=== PATIENT | male | born 1955 | race Caucasian/White ===

== ENCOUNTER 2021-07-23 16:38 | Inpatient (IN) | payer OTHER ==
[~2021-07-23] VITALS: Ht 195.6 cm; Wt 137.9 kg
--- NOTE | 2021-07-23 16:40 | NUR ---
Patient to ER bed 4 to gown for evaluation. Side rails up. Report given to SARABJIT TRINH.
--- NOTE | 2021-07-23 16:42 | NUR ---
ER at bedside examining patient.
--- NOTE | 2021-07-23 16:45 | NUR ---
PT CAME IN TODAY AFTER BEING REFERRED BY URGENT CARE, STATES HE STARTED TO HAVE CP LAST NIGHT AROUND 2200, WOKE UP THIS MORNING STILL HAVING SUBSTERNAL NONRADIATING CP WITH SOME SOB. PT IS AMBULATORY, AAOX4, VSS
[2021-07-23 16:49] VITALS: BP_SYST 167
--- NOTE | 2021-07-23 17:00 | NUR ---
PT ABLE TO PROVIDE URINE SAMPLE
--- NOTE | 2021-07-23 17:10 | NUR ---
# 20 gauge angiocath placed to LAC. Use of asceptic technique. Opsite placed over site. Blood return noted. Blood for lab drawn from site. Flushed with 10 cc of normal saline. No evidence of infiltration noted. Patient tolerated well.
[2021-07-23 17:19] LABS: BILIRUBIN,URINE NEGATIVE (NEGATIVE); BLOOD, URINE NEGATIVE (NEGATIVE); CLARITY/URINE CLEAR (CLEAR); COLOR,URINE YELLOW (YELLOW); GLUCOSE,URINE NEGATIVE (NEGATIVE); KETONES,URINE TRACE (NEGATIVE); LEUKOCYTE ESTERASE ,URINE NEGATIVE (NEGATIVE); NITRITE, URINE NEGATIVE (NEGATIVE); PROTEIN URINE TRACE (NEGATIVE); UROBILINOGEN,URINE 0.2 (0.2-1.0)
--- NOTE | 2021-07-23 17:23 | NUR ---
PORTABLE XRAY AT THE BEDSIDE
[2021-07-23 17:32] LABS: BASOPHILS # (AUTO) 0.1 K/uL (0.0-0.2); BASOPHILS % (AUTO) 1.3 % (0.0-2.0); EOSINOPHILS % (AUTO) 0.3 % (0.0-4.0); HEMATOCRIT 43.8 % (36-54); HEMOGLOBIN 14.5 g/dL (14.0-18.0); LYMPHOCYTES # (AUTO) 0.9 K/uL (1.0-5.5); LYMPHOCYTES % (AUTO) 9.1 % (20.5-51.5); MEAN CORPUSCULAR HEMOGLOBIN 30 pg (27-31); MEAN CORPUSCULAR HGB CONC 33 % (32-36); MEAN CORPUSCULAR VOLUME 91 fL (79.0-98.0); MONOCYTES % (AUTO) 10.3 % (1.7-9.3); PLATELET COUNT (AUTO) 215 K/uL (130-430); RED BLOOD CELL COUNT(AUTO) 4.79 MIL/uL (4.2-6.2); RED CELL DISTRIBUTION WIDTH 14.4 % (9.0-15.0); WHITE BLOOD COUNT (AUTO) 10.1 K/uL (4.8-10.8)
[2021-07-23 17:37] LABS: ANION GAP 9 (5-15); CALCIUM 8.8 mg/dL (8.4-11.0); CHLORIDE 102 mmol/L (98-107); CREATININE 1.26 mg/dL (0.55-1.30); GLUCOSE 130 mg/dL (70-99); SODIUM SERUM 138 mmol/L (136-145); UREA NITROGEN, BLOOD 16 mg/dL (8-21)
[2021-07-23 17:38] LABS: PROTHROMBIN TIME 10.3 SECS (9.5-12.5)
[2021-07-23 17:40] LABS: GFR AFRICAN AMERICAN 73 mL/min (>90)
[2021-07-23 17:45] LABS: ALANINE AMINOTRANSFERASE 32 U/L (12-78); ALBUMIN 3.8 g/dL (3.4-4.8); ASPARTATE AMINOTRANSFERASE 25 U/L (10-37); LIPASE 34 U/L (73-393); TOTAL BILIRUBIN 0.5 mg/dL (0.0-1.0)
[2021-07-23] MEDS ORDERED: ASPIRIN 325 MG TABLET PO ONE (17:45)
--- NOTE | 2021-07-23 17:46 | NUR ---
COVID SWAB DONE AND SENT TO LAB
[2021-07-23] MEDS ORDERED: NITROGLYCERIN 0.4 MG TAB.SUBL SL ONE (18:45)
[2021-07-23] MEDS ORDERED: OMEP-268 PO (18:56)
--- NOTE | 2021-07-23 18:57 | NUR ---
Medication reconciliation completed with information provided by PT. Any prior medication reconciliation on file was reviewed and corrected.
--- NOTE | 2021-07-23 19:11 | NUR ---
REPORT GIVEN TO GAYATHRI COPELAND
--- NOTE | 2021-07-23 19:18 | NUR ---
Pt states pain level is 1/10 after Nitro administration, states he feels better.
--- NOTE | 2021-07-23 19:23 | NUR ---
REPORT RECIEVED FROM GAYATHRI JEFFERY. PT IN BED NO ACUTE DISTRESS. PT DENIES ANY PAIN AT THIS TIME. AT THE BEDSIDE. ANURAG MONITOR NEEDED
[2021-07-23] MEDS ORDERED: DOXYCYCLINE HYCLATE 100 MG CAPSULE PO ONE (20:30)
[2021-07-23] MEDS ORDERED: cefTRIAXone 1 GM in D5W 50 ML IV ONE (20:30)
[2021-07-23] MEDS ORDERED: cefTRIAXone 1 GM VIAL ONE (20:36)
--- NOTE | 2021-07-23 20:56 | NUR ---
PT IN BED, PENDING ADMISSION.
--- NOTE | 2021-07-23 21:09 | NUR ---
Pravin mina in [facility] - 07/24/21 at 0021 by [email or web address] PT TRANSPORTED IN STABLE CONDITION TO [facility] UNIT WITH ALL BELONGINGS. BEDSIDE REPORT CLAUDY TO STALIN DURAN RN. ALL QUESTIONS ANSWERED
--- NOTE | 2021-07-23 21:09 | NUR ---
PT TRANSPORTED IN STABLE CONDITION TO TELE UNIT WITH ALL BELONGINGS. BEDSIDE REPORT GIEVN TO STALIN DURAN RN. ALL QUESTIONS ANSWERED
[2021-07-23] MEDS ORDERED: ALBUTEROL SULFATE 0.083% 2.5 MG/3 ML VIAL.NEB INH PRN (21:30)
[2021-07-23] MEDS ORDERED: HYDROcodone/ACETAMIN 5-325 MG TAB (NORCO/ VICODIN) PO PRN (21:30)
[2021-07-23] MEDS: AZITHROMYCIN 500 MG in NS 250 ML IV SCH (21:30)
--- NOTE | 2021-07-23 21:44 | NUR ---
Admit bed requested Patient will be admitted to care of . Admitted to TELE unit. Diagnosis CHEST PAIN,PNEUMONIA Inpatient (Yes or No) NO Observation (Yes or No) YES Orientation concerns or request close to nursing station (Yes or No) NO Covid Status NEGATIVE On vent or bipap NO Isolation requirements NO Needs a sitter NO From Home (Yes or if No enter name of facility) YES Requires Dialysis (Yes or No) NO Med Rec Completed (Yes of No) PENDING
--- NOTE | 2021-07-23 22:09 | NUR ---
PT TRANSPORTED TO TELE UNIT IN STABLE CONDITION WITH ALL BELONGINGS BY RN WITH TECH. BEDSIDE REPORT PROVIDED TO STALIN DURAN RN. ALL QUESTIONS ANSWERED
--- NOTE | 2021-07-23 22:23 | NUR ---
ADMISSION NOTE Received patient from ER via hallie, received report from Roz TRINH. Patient admitted with diagnosis of chest pain, pneumonia. Patient oriented to hospital routine, call light, toileting and safety-patient verbalized understanding.
[2021-07-23 22:34] VITALS: BP_SYST 147
--- NOTE | 2021-07-23 22:46 | NUR ---
CONSULTATION PAGED/CALLED Reason for Consultation: CHEST PAIN Person Who was Notified: LAURA Consulting Physician:WILIAN Cook [employer]: Ordering Physician: CITLALI
[2021-07-23] MEDS ORDERED: AZITHROMYCIN 500 MG/VIAL (ZITHROMAX) IV ONE (23:22)
[2021-07-24 04:04] VITALS: BP_SYST 147
[2021-07-24 06:37] LABS: BASOPHILS % (AUTO) 0.2 % (0.0-2.0); EOSINOPHILS % (AUTO) 0.5 % (0.0-4.0); HEMATOCRIT 39.3 % (36-54); LYMPHOCYTES # (AUTO) 1.7 K/uL (1.0-5.5); MEAN CORPUSCULAR HEMOGLOBIN 30 pg (27-31); MEAN CORPUSCULAR HGB CONC 33 % (32-36); MEAN CORPUSCULAR VOLUME 91 fL (79.0-98.0); MONOCYTES % (AUTO) 11.7 % (1.7-9.3); NEUTROPHILS # (AUTO) 5.7 K/uL (1.8-7.7); NEUTROPHILS % (AUTO) 67.6 % (40.0-70.0); PLATELET COUNT (AUTO) 187 K/uL (130-430); RED BLOOD CELL COUNT(AUTO) 4.33 MIL/uL (4.2-6.2); RED CELL DISTRIBUTION WIDTH 14.4 % (9.0-15.0); WHITE BLOOD COUNT (AUTO) 8.5 K/uL (4.8-10.8)
[2021-07-24 07:17] LABS: ALBUMIN 3.1 g/dL (3.4-4.8); CALCIUM 8.1 mg/dL (8.4-11.0); CREATININE 1.02 mg/dL (0.55-1.30); POTASSIUM 4.1 mmol/L (3.5-5.1); TOTAL BILIRUBIN 0.5 mg/dL (0.0-1.0)
--- NOTE | 2021-07-24 07:30 | NUR ---
rn opening note report was endorsed by night nurse. patient is awake and alert laying in bed no complaints of any pain at this time. denies SOB patient educated supervisor component assembler light for assistance, call light is with patient. no other needs at this time.
[2021-07-24 08:03] VITALS: BP_SYST 144
[2021-07-24] MEDS ORDERED: PANTOPRAZOLE SODIUM 40 MG TAB PO ONE (09:00)
[2021-07-24] MEDS: ASPIRIN 325 MG TABLET PO SCH (09:40)
--- NOTE | 2021-07-24 09:42 | NUR ---
MEDICATION PATIENTS SCHEDULED MEDICATION GIVEN PER ORDER. PATIENT IS AWAKE AND ALERT SITTING UP IN BED. ECHO DONE. TOLERATED MEDICATION WELL. EDUCTED LEAF COVERER LIGHT FOR ASSISTANCE. CALL LIGHT IS WITH HIM. NO OTHER NEEDS AT THIS TIME.
[2021-07-24 12:00] VITALS: BP_SYST 150
--- NOTE | 2021-07-24 12:44 | NUR ---
MEDICATION PATIENTS SCHEDULE MEDICATION GIVEN PER ORDER. PATIENT IS AWAKE AND ALERT TOLERATED MEDICATION WELL. PATIENT FINISHED ALL HIS LUNCH NO COMPLAINTS AT THIS TIME. EDUCATED TO USE CALL LIGHT FOR ASSISTANCE. CALL LIGHT IS WITH HIM.
--- NOTE | 2021-07-24 14:56 | NUR ---
rn rounding patient is awake and alert laying in bed u/s tech at bedside. patient has call light with him educated to use for assistance. not other needs at this time.
[2021-07-24 16:00] VITALS: BP_SYST 150
--- NOTE | 2021-07-24 16:42 | NUR ---
RN ROUNDING PATIENT IS AWAKE AND ALERT SITING UP IN BED. HAS NO COMPLAINTS OF PAIN AT THIS TIME. CALL LIGHT IS WITH HIM NO OTHER NEEDS AT THIS TIME.
--- NOTE | 2021-07-24 18:56 | NUR ---
RN CLOSING NOTE PATIENT IS AWAKE AND ALERT LAYING IN BED. NO COMPLAINTS OF ANY PAIN AT THIS TIME. CALL LIGHT IS WITH HIM EDUCATED TO USE FOR ASSISTANCE. NO OTHER NEEDS AT THIS TIME.
--- NOTE | 2021-07-24 19:30 | NUR ---
HAND-OFF REPORT RECEIVED FROM ON-COMING DAYAMI TRINH. REPORTED: US 2D ECHO 75%' SCD's ORDERED. PT AMBULATING FREQUENTLY' O2@2L/NC CONTINUOUSLY. RECEIVED PT AWAKE AND LYING IN BED WATCHING NEWS. ASSEMBLER WATCH TRAIN SR. A/0X4. CHEST PAIN "HARDLY ANY" 04/20. ENCOURAGE CDB. MOVES ALL EXTREMITIES WELL. NO EDEMA. DENIES SOB. "I'M ABLE TO TAKE DEEPER AND DEEPER BREATHS." CONTINUE TO MONITOR AND ASSIST NEEDED. Addendum: 07/25/21 at 0031 by [facility] grain elevator operator ...RECEIVED FROM OFF-GOING DAYAMI TRINH
[2021-07-24 20:00] VITALS: BP_SYST 151
--- NOTE | 2021-07-24 21:00 | NUR ---
IV ANTIBIOTICS NOT AVAILABLE. REPORTED TO SUPER. PT RESTING QUIETLY WATCHING TV.
[2021-07-24] MEDS ORDERED: AZITHROMYCIN 500 MG/VIAL (ZITHROMAX) IV ONE (22:42)
[2021-07-24] MEDS ORDERED: cefTRIAXone 1 GM IVPB PREMIX 50 ML IV ONE (22:42)
[2021-07-24] MEDS: AZITHROMYCIN 500 MG in NS 250 ML IV SCH (23:05)
[2021-07-24] MEDS: cefTRIAXone 1 GM IVPB PREMIX 50 ML IV SCH (23:06)
[2021-07-24] MEDS: ACETAMINOPHEN 325 MG TABLET PO PRN (23:15)
--- NOTE | 2021-07-24 23:15 | NUR ---
ANTIBIOTICS RECEIVED. PT RESTING WELL. INFUSING.
[2021-07-25 00:01] VITALS: BP_SYST 131
--- NOTE | 2021-07-25 01:09 | NUR ---
PT SLEEPING. NO S/S OF DISTRESS.
[2021-07-25 08:55] VITALS: BP_SYST 136
--- NOTE | 2021-07-25 08:55 | NUR ---
INITIAL ROUNDS Received pt AAOx4 sitting up in bedside chair, no s/s resp distress, no c/o pain or discomfort, cough noted. Plan of care for the day reviewed with pt-pt verbalized his understanding. Pain management, disease process, skin and safety discussed-teach back done. Call light within reach.
[2021-07-25] MEDS: ASPIRIN 325 MG TABLET PO SCH (09:50)
[2021-07-25] MEDS: PANTOPRAZOLE SODIUM 40 MG TAB PO SCH (09:50)
[2021-07-25 16:15] VITALS: BP_SYST 149
--- NOTE | 2021-07-25 16:15 | NUR ---
ROUNDS Pt resting quietly in bed with no c/o chest pain or chest pressure, no c/o shortness of breath. Pt given fresh ice water. Needs met, call light within reach.
--- NOTE | 2021-07-25 18:26 | NUR ---
CLOSING NOTE Pt sitting up in bed watching television with no s/s resp distress, no c/o chest pain or chest pressure, no c/o pain or discomfort. Needs met. Call light within reach.
--- NOTE | 2021-07-25 20:30 | NUR ---
This nurse arrived and assessment completed. Pt is AAOx4 sitting up in bed, no s/s Resp distress, no c/o pain or discomfort. denies any chest pain at this time. Pt has SL IV on the left A/C, flushed and patent with no pain at the site. Call light within reach.alll safety measures in place
[2021-07-25] MEDS ORDERED: AZITHROMYCIN 500 MG/VIAL (ZITHROMAX) IV ONE (21:35)
[2021-07-25] MEDS ORDERED: cefTRIAXone 1 GM IVPB PREMIX 50 ML IV ONE (21:35)
[2021-07-25] MEDS: cefTRIAXone 1 GM IVPB PREMIX 50 ML IV SCH (21:47)
[2021-07-25] MEDS: ACETAMINOPHEN 325 MG TABLET PO PRN (21:53)
[2021-07-25] MEDS: AZITHROMYCIN 500 MG in NS 250 ML IV SCH (22:02)
[2021-07-26 00:25] VITALS: BP_SYST 140
[2021-07-26 06:17] LABS: BASOPHILS % (AUTO) 0.2 % (0.0-2.0); EOSINOPHILS # (AUTO) 0.1 K/uL (0.0-0.4); EOSINOPHILS % (AUTO) 1.4 % (0.0-4.0); HEMATOCRIT 39.2 % (36-54); LYMPHOCYTES # (AUTO) 2.5 K/uL (1.0-5.5); LYMPHOCYTES % (AUTO) 26.3 % (20.5-51.5); MEAN CORPUSCULAR HEMOGLOBIN 30 pg (27-31); MEAN CORPUSCULAR HGB CONC 33 % (32-36); MEAN CORPUSCULAR VOLUME 91 fL (79.0-98.0); MONOCYTES # (AUTO) 0.9 K/uL (0.0-1.0); MONOCYTES % (AUTO) 9.1 % (1.7-9.3); NEUTROPHILS # (AUTO) 6.1 K/uL (1.8-7.7); PLATELET COUNT (AUTO) 223 K/uL (130-430); RED BLOOD CELL COUNT(AUTO) 4.32 MIL/uL (4.2-6.2); RED CELL DISTRIBUTION WIDTH 14.3 % (9.0-15.0); WHITE BLOOD COUNT (AUTO) 9.7 K/uL (4.8-10.8)
[2021-07-26 06:50] LABS: CALCIUM 8.6 mg/dL (8.4-11.0); CREATININE 1.08 mg/dL (0.55-1.30); POTASSIUM 4.1 mmol/L (3.5-5.1)
[2021-07-26] MEDS: ASPIRIN 325 MG TABLET PO SCH (09:03)
[2021-07-26] MEDS: PANTOPRAZOLE SODIUM 40 MG TAB PO SCH (09:07)
[2021-07-26] MEDS ORDERED: LEVO500T90 PO (09:29)
[2021-07-26 11:30] VITALS: BP_SYST 138
[2021-07-26 12:19] VITALS: BP_SYST 133
[2021-07-26 12:52] VITALS: BP_SYST 130
[2021-07-26 13:06] VITALS: BP_SYST 130
--- NOTE | 2021-08-04 10:02 | NUR ---
[employer]le [employer] SUBSTATION OPERATOR HELPER made a Post Discharge Follow-Up Phone Call to speak to former pt. Cesar, but his , Cynthia answered and stated Cesar went back to work, and soon after began to feel poorly. Cynthia stated Cesar had a follow up apt. with his PCP, Dr. Escobedo on 08/03. Dr. Escobedo put Cesar off of work until 08/14 and told Cesar he felt Cesar tried to go back to work too early. Cynthia stated they did not have any concerns or issues and thanked SUBSTATION OPERATOR HELPER for the call.
== END 2021-07-26 13:35 | disposition home or self-care (01) | DRG 195 ==
LOC: SED 16:38 → STU 21:22
PROVIDERS: ADMIT Internal Medicine Hospice and Palliative Medicine; ATTEND Internal Medicine Hospice and Palliative Medicine
DX: J18.9 Pneumonia, unspecified organism (principal); K21.9 Gastro-esophageal reflux disease without esophagitis; Z20.822 Contact with and (suspected) exposure to COVID-19
CPT/HCPCS: 36415; 71045; 71046-TC; 76604; 80048; 80053; 81003; 83605; 83690; 83735; 83880; 84484; 85025; 85379; 85610-TC; 85730-TC; 87040; 93005; 93306; 94760; 96374; 99285; G0378; J0456; J0696